=== PATIENT | female | born 1985 | race Caucasian/White ===

== ENCOUNTER 2021-02-01 16:45 | Outpatient (CLI) | payer OTHER, MEDICAID | END 2021-02-01 16:46 | disposition home or self-care (01) | LOC: EMS 16:45 | DX: Z04.1 Encounter for examination and observation following transport accident (principal); M54.2 Cervicalgia; M54.9 Dorsalgia, unspecified | CPT/HCPCS: A0425; A0427 ==

== ENCOUNTER 2021-02-01 17:10 | Emergency (ER) | payer OTHER, MEDICAID ==
[2021-02-01] MEDS ORDERED: HYDROmorphone 1 MG/ML CARPUJECT IVP STA (17:51)
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
[2021-02-01] MEDS ORDERED: IOPAMIDOL-300 100 ML VIAL ONE (18:05)
[2021-02-01 18:21] LABS: BASOPHILS % (AUTO) 0.2 %; EOSINOPHILS # (AUTO) 0.2 10^3/uL (0.0-0.7); EOSINOPHILS % (AUTO) 1.6 %; HCT - HEMATOCRIT 40.2 % (37.0-47.0); HGB - HEMOGLOBIN 13.8 g/dL (12.0-16.0); LYMPHOCYTES # (AUTO) 2.3 10^3/uL (1.5-3.5); LYMPHOCYTES % (AUTO) 24.1 %; MEAN CORPUSCULAR HEMOGLOBIN 30.7 pg (27.0-31.0); MEAN CORPUSCULAR HGB CONC 34.3 g/dL (32.0-36.0); MEAN CORPUSCULAR VOLUME 89.5 fL (81.0-99.0); MEAN PLATELET VOLUME 8.3 fL (7.9-10.8); MONOCYTES # (AUTO) 0.6 10^3/uL (0.0-1.0); MONOCYTES % (AUTO) 6.4 %; NEUTROPHILS # (AUTO) 6.4 10^3/uL (1.5-6.6); NEUTROPHILS % (AUTO) 67.3 %; PLT - PLATELET COUNT 327 10^3/uL (130-450); RED BLOOD COUNT 4.49 10^6/uL (4.20-5.40); RED CELL DISTRIBUTION WIDTH 11.9 % (12.0-15.0); WHITE BLOOD COUNT 9.6 x10^3/uL (4.8-10.8)
[2021-02-01 18:29] LABS: INR 1.2 (0.8-1.2); PT - PROTHROMBIN TIME 12.8 secs (9.9-12.6)
[2021-02-01 18:36] LABS: ALBUMIN 4.1 g/dL (3.2-5.5); ALBUMIN/GLOBULIN RATIO 1.3 (1.0-2.2); BILIRUBIN,TOTAL 0.3 mg/dL (0.2-1.0); CALCIUM 9.4 mg/dL (8.5-10.3); CREATININE 0.7 mg/dL (0.4-1.0); POTASSIUM 3.9 mmol/L (3.5-5.0); TOTAL PROTEIN 7.3 g/dL (6.7-8.2)
[2021-02-01] MEDS ORDERED: IOPAMIDOL-300 100 ML VIAL IVP ONE (18:40)
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
[2021-02-01] MEDS ORDERED: HYDROmorphone 2 MG/ML VIAL IVP STA (21:14)
[2021-02-01 21:34] VITALS: BP 146/94
[2021-02-01 22:30] LABS: B. PARAPERTUSSIS- RESP PCR PAN NOT DETECTED; B. PERTUSSIS- RESP PCR PANEL NOT DETECTED; C. PNEUMONIAE- RESP PCR PANEL NOT DETECTED; CORONAVIRUS 229E-RESP PCR NOT DETECTED; CORONAVIRUS HKU1-RESP PCR NOT DETECTED; CORONAVIRUS NL63-RESP PCR NOT DETECTED; CORONAVIRUS OC43-RESP PCR NOT DETECTED; HUMAN METAPNEUMOVIRUS NOT DETECTED; INFLUENZA A- RESP PCR PANEL NOT DETECTED; INFLUENZA B - RESP PCR PANEL NOT DETECTED; M. PNEUMONIAE- RESP PCR PANEL NOT DETECTED; PARAINFLUENZA VIRUS 1 NOT DETECTED; PARAINFLUENZA VIRUS 2 NOT DETECTED; PARAINFLUENZA VIRUS 3 NOT DETECTED; PARAINFLUENZA VIRUS 4 NOT DETECTED; RHINOVIRUS/ENTEROVIRUS NOT DETECTED; RSV- RESP PCR PANEL NOT DETECTED; SARS-CoV-2 -RESP PCR PANEL NOT DETECTED
== END 2021-02-01 21:58 | disposition short-term general hospital (02) ==
LOC: ED 17:10
DX: S36.229A Contusion of unspecified part of pancreas, initial encounter (principal); S39.91XA Unspecified injury of abdomen, initial encounter; V43.62XA Car passenger injured in collision with other type car in traffic accident, initial encounter; Y92.488 Other paved roadways as the place of occurrence of the external cause; Z20.822 Contact with and (suspected) exposure to COVID-19
CPT/HCPCS: 0202U; 36415; 70450; 72125; 72131; 74177; 80053; 83690; 85025; 85610; 96374; 96376; 99284; 99285; J1170; Q9967

== ENCOUNTER 2021-02-01 21:56 | Outpatient (CLI) | payer OTHER, MEDICAID | END 2021-02-01 21:57 | disposition short-term general hospital (02) | LOC: EMS 21:56 | PROVIDERS: ATTEND Registered Nurse | DX: S36.229A Contusion of unspecified part of pancreas, initial encounter (principal); W22.8XXA Striking against or struck by other objects, initial encounter; Q79.60 Ehlers-Danlos syndrome, unspecified; Z74.01 Bed confinement status | CPT/HCPCS: A0425; A0426 ==